=== PATIENT | male | born 1950 ===

== ENCOUNTER 2020-10-16 07:00 | Observation (INO) ==
--- NOTE | 2020-10-11 12:39 | Anesthesiology Consultation ---
Date of Service October 11, 2020 Assessment & Plan (1) Encounter for pre-operative examination: COVID Status: As of 09/25/20 nurse assessment, patient denies travel to endemic area, known exposure/sick contacts, or symptoms of COVID19. [place] [facility] [place]. Cardiology Clearance 09/28/20 = "Do not recommend further invasive or noninvasive cardiovascular testing or procedures. 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 Patient did not disclose h/o DM, nor is he on any medications for it. Note sent to PCP; patient was to be seen for pre-op clearance ordered by surgeon on 08/27. Will await clearance note. Chart Review Chart Review: Acceptable Risk for Surgery (pending receipt of PCP clearance) and health researcher initiated (patient seen in PAT by Mena Ngo 08/22/20, case then R/S) History Surgery Operation Date: 10/16/20 12:15 Proposed Procedures p Right Total Knee Arthroplasty - Daniele Quintanilla DO Height/Weight Height: 5 ft 9 in Weight: 102.965 kg Allergies Allergy/AdvReac Type Severity Reaction Status Date / Time meloxicam AdvReac Unknown TO AVOID Verified 09/25/20 08:41 DUE TO EFFECT ON KIDNEY FUNCTION Medications Home Medications Medication Instructions Recorded Confirmed Last Taken acetaminophen [Tylenol Arthritis] 1,300 mg PO Q12H PRN 08/16/20 09/25/20 Unknown diphenhydramine-acetaminophen 1 tab PO HS PRN 08/16/20 09/25/20 Unknown [Tylenol PM Extra Strength] multivitamin 1 tab PO QAM 08/16/20 09/25/20 Unknown simvastatin 10 mg PO HS 08/16/20 09/25/20 Unknown Past Medical History Medical History Arthritis Cardiac murmur childhood- no murmur noted by Simran Ngo at PAT visit 08/22/20 COVID-19 03/2020- mild symptoms, fever, cough, fatigue (no residual effects) - has completely recovered Elevated hemoglobin A1c was 7.3, went on diet lost 5#, started checking blood sugar and will see dr Gonzalez(PCP) in [facility]) 09/26/2020 Hyperlipidemia Sleep apnea "Moderate" per home sleep study- never received a device - pt never did follow up study for device Past Surgical History Surgical History History of carpal tunnel release R/L + trigger finger release History of colonoscopy History of esophagogastroduodenoscopy (EGD) Social History Smoking Status: Never smoker Do You Dip or Chew Tobacco: No Hx Alcohol Use: No Hx Substance Use: No substance use type: does not use Testing Laboratory Results 08/22/20 WBC: 8.06 H/H: 14.3/42.7 PLATELETS: 290 SODIUM: 135 POTASSIUM: 4.3 CHLORIDE: 103 CO2: 28 BUN: 30 CREATININE: 1.31 GLUCOSE: 103 PT: 10.9 PTT: 28.8 INR: 1.0 A1C: 7.3% TYPE AND SCREEN: A+, antibody negative Electrocardiogram Date: 09/13/20 Findings: + NSR @ (71bpm) IVCD. Anteroseptal VT, possibly acute. Q-wave in V1-V4. (performed at cardio appointment, subsequent stress testing performed) Chest X-Ray Date: 08/22/20 Findings: + NAD Echocardiogram Date: 09/13/20 EF: 55% Normal LV cavity size, wall thickness and systolic function. No RWMA. Normal RV size and function. Mild calcification of mitral valve with trivial regurgitation. Stress Test Date: 09/13/20 Type: nuclear Findings: no ischemia Resting EF: 74% Stress EKG uninterpretable for ischemia on account of the baseline LBBB. Fixed small basal inferior wall perfusion defect c/w diaphragmatic attenuation.
--- NOTE | 2020-10-14 10:16 | History & Physical Report ---
Date of Service October 16, 2020 Assessment & Plan (1) Degenerative joint disease of knee, right: I have indicated the patient for right total knee replacement. The risks, benefits and complications of surgery were explained to the patient which include but not limited to infection, acute blood loss, DVT/PE, injury to nerves, vessels, bone, soft tissue, arthrofibrosis, chronic pain, failure of the prosthesis, knee dislocation, leg length discrepancy, need for additional surgery, cardiac and pulmonary events and . The patient wished to proceed with surgery and informed consent was obtained at this time. We will plan for 81mg ASA BID post-operatively for DVT prophylaxis. Upon discharge the patient will be discharged home with home health services. Appropriate clearances by PCP were obtained. History of Present Illness Chief Complaint: Right knee pain/DJD Primary Care Provider: Grant Gonzalez MD The patient is a 70 year old male who presents with complaints of severe right knee pain and DJD. The patient has failed outpatient conservative treatments to this point which included NSAIDs, IA corticosteroid and VERMA injections, PT and a home exercise/walking program. The patient's pain and limited function have progressed to the point where they severely hinder their activities of daily living and they no longer tolerate exercise programs. They are requesting to proceed with total knee replacement surgery. Allergies Allergy/AdvReac Type Severity Reaction Status Date / Time meloxicam AdvReac Unknown TO AVOID Verified 10/16/20 07:34 DUE TO EFFECT ON KIDNEY FUNCTION Home Medications Medication Instructions Recorded Confirmed Type acetaminophen [Tylenol Arthritis] 1,300 mg PO Q12H PRN 08/16/20 09/25/20 History diphenhydramine-acetaminophen 1 tab PO HS PRN 08/16/20 09/25/20 History [Tylenol PM Extra Strength] multivitamin 1 tab PO QAM 08/16/20 09/25/20 History simvastatin 10 mg PO HS 08/16/20 09/25/20 History metformin 500 mg PO QAM 10/11/20 10/11/20 History Past Med/Surg History Medical History Arthritis Cardiac murmur childhood- no murmur noted by Simran Ngo at PAT visit 08/22/20 COVID-19 03/2020- mild symptoms, fever, cough, fatigue (no residual effects) - has completely recovered Diabetes mellitus Type II Hyperlipidemia Sleep apnea "Moderate" per home sleep study- never received a device - pt never did follow up study for device Surgical History History of carpal tunnel release R/L + trigger finger release History of colonoscopy History of esophagogastroduodenoscopy (EGD) Social History Smoking Status: Never smoker Second Hand Exposure: No; Do You Dip or Chew Tobacco: No; Tobacco Cessation Education Requested by Patient: No Hx Alcohol Use: No Hx Substance Use: No Preferred Language: Macedonian Communication Ability: Effective Nursery Hand Required: No Beliefs That Will Affect Care: None Current Living Situation: Spouse Other Information That Helps Us Care for You: No Feels Safe at Home: Yes Safety Concerns: Feels Safe At This Time Assistive Devices: Glasses Review of Systems Review of Systems: All systems reviewed & are unremarkable except as noted in HPI & below Constitutional: as per Subjective / HPI Physical Exam Physical Exam: RLE NVSI +EHL/FHL/TA/GS SILT grossly, +2 DP pulse, compartments soft NT, limited painful ROM of the knee, 0-115 degrees of flexion, +crepitus. Constitutional: WD/WN, vitals as above Eyes: PERRL, conjunctivae normal, anicteric sclerae ENMT: external ear and nose normal, oropharynx normal Neck: trachea midline, no thyromegaly Respiratory: normal respiratory effort, lungs clear to auscultation Cardiovascular: RRR, no murmur, no edema Gastrointestinal (Abdomen): normal bowel sounds, soft, nontender, no hepatosplenomegaly Musculoskeletal: no cyanosis or clubbing, extremities motor strength 5/5 Skin: no rashes, warm and dry Neurologic: patellar DTR's 2+ bilat, sensation intact Psychiatric: A+Ox3, euthymic affect Lymphatic: no cervical or axillary lymphadenopathy Results & Data Results & Data ([facility]) Diagnostic Findings Multiple views of the knee demonstrates severe tricompartmental DJD with complete loss of the lateral, PF joint space. +osteophytes, +sclerosis, +subchondral cysts.
[~2020-10-16 07:00] MED LIST: ACETAMINOPHEN 500 MG TAB PO SCH; BUPIVACAINE 0.25% 30 ML VIAL ONE; BUPIVACAINE 0.5 % 5 MG/1 ML PF 10ML VIAL ONE; CeleBREX 200 MG CAP PO SCH; FAMOTIDINE 20 MG TAB PO SCH; LR 500ML BOLUS, THEN 15ML/HR IV SCH; METOCLOPRAMIDE HCL 10 MG TABLET PO SCH; ROPIVACAINE 0.5% HCL/PF 150 MG, BUPIVACAINE 0.75% MPF 20 ML, EPINEPHrine 30MG/30ML (OR ... INFIL SCH; TRANEXAMIC ACID 1,000 MG **IV Intra-op IV SCH; TRANEXAMIC ACID 1,000 MG **IV Pre-op IV SCH; ceFAZolin 2000MG 2,000 MG/15 ML SYR IV SCH; dexAMETHasone 4 MG TAB PO SCH
[2020-10-16] MEDS ORDERED: fentaNYL citrate 100 MCG/2 ML VIAL IV PRN (09:00)
[2020-10-16] MEDS ORDERED: ATROPINE SULFATE 0.1 MG/ML 10ML SYR IV PRN (09:00)
[2020-10-16] MEDS ORDERED: ePHEDrine sulfate 50 MG/ML AMP IV PRN (09:00)
[2020-10-16] MEDS ORDERED: ONDANSETRON INJ 2 MG/ML 2 ML VIAL IV PRN ×2 (09:00→12:34)
[2020-10-16] MEDS ORDERED: MIDAZOLAM HCL 1 MG/ML 2ML VIAL ONE ×4 (09:15→13:47)
--- NOTE | 2020-10-16 09:18 | History & Physical Bridge Note ---
Date of Service October 16, 2020 History & Physical Bridge Note I have examined the patient, reviewed the History & Physical and in the interval since the performance of the History & Physical I have noted the following changes of clinical significance: no changes noted
[2020-10-16] MEDS ORDERED: ORTHO JOINT ANESTHETIC ONE (09:36)
[2020-10-16] MEDS ORDERED: BACITRACIN INJ 50,000 UNIT VIAL ONE (09:37)
--- NOTE | 2020-10-16 11:22 | Post Operative Brief Note ---
Immediate Post Op Note v1 Date of Surgery October 16, 2020 Pre & Post Diagnosis Operation Date: 10/16/20 09:35 Pre-Op Diagnosis: Unilateral Primary Osteoarthritis Knee Right Post-Op Diagnosis: Unilateral Primary Osteoarthritis Knee Right I identified the patient and participated in the time-out.: Yes Procedure Operation Date: 10/16/20 09:35 Actual Procedures p Right Total Knee Arthroplasty(Right) - Daniele Quintanilla DO Surgeon Daniele Quintanilla DO Tobacco Packer Brady Stoner Estimated Blood Loss 85 Findings Consistent with Post-Op Diagnosis Fluids See anesthesia report Specimens Proximal tibia and distal femur bone fragments Anesthesia Type Spinal MAC Complications none Disposition Disposition: Recovery Room Overlapping Procedure I was present for: the critical portions of procedure. I was immediately available: during the entire case. Back up surgeon: was not required during procedure.
--- NOTE | 2020-10-16 11:25 | Operative Report ---
Post Operative Report Pre & Post Diagnosis Operation Date: 10/16/20 09:35 Pre-Op Diagnosis: Unilateral Primary Osteoarthritis Knee Right Post-Op Diagnosis: Unilateral Primary Osteoarthritis Knee Right I identified the patient and participated in the time-out.: Yes Procedure Operation Date: 10/16/20 09:35 Actual Procedures p Right Total Knee Arthroplasty(Right) - Daniele Quintanilla DO Surgeon Daniele Quintanilla, Associate Medical Director Brady Stoner Estimated Blood Loss 85 Findings Consistent with Post-Op Diagnosis Fluids See anesthesia report Specimens Proximal tibia and distal femur bone fragments Anesthesia Type Spinal MAC Complications none Disposition Disposition: Recovery Room Indications The patient is a 70-year-old male presents with long history of severe right knee tricompartmental DJD and failed outpatient conservative treatments including NSAIDs, bracing, injections and home walking/exercise program. The patient's symptoms have progressed to the point where it has been difficult to perform normal activities of daily living. I have indicated the patient for a right total knee arthroplasty, the risks and benefits and complications of the procedure include but are not limited to infection bleeding damage to bone, nerves, vessels, surrounding soft tissue, blood clots, loss of function, leg length discrepancy, dislocation, failure of the components, need for additional surgery and . The patient wished to proceed with surgery at this time and informed consent was obtained. Appropriate clearances were obtained. Description of Procedure The patient was taken to the operating room and appropriate spinal anesthesia was administered. The patient was placed supine on the operating room table. A foot roll was placed so we could flex the knee during the procedure as needed. A pneumatic tourniquet was placed on the proximal aspect of the thigh. The right lower extremity was prepped and draped in usual sterile fashion. A timeout was performed, patient and site jordan verified and IV antibiotics given. The leg was elevated, exsanguinated with Esmarch bandage. Pneumatic tourniquet was raised to 300 mmHg. A longitudinal midline incision was made over the anterior knee. Skin was incised sharply and subcutaneous flaps were elevated. Incision was made through the medial retinaculum extended up in the mid third of the quadriceps tendon and extended down to the medial tibial tubercle. The Bazzi [employer] Nephew Journey 2.0 total knee arthroplasty system was used using CipherHealthe MRI templating and femur sized for a 6, tibial sized for a 6. To expose the knee the infrapatellar fat pad was resected. The lateral synovial bands were released. The cruciate ligaments were resected. The meniscal remnants were resected. The fat pad over the anterior femur just above the articular surface for placement of the component in that area was resected. The knee was flexed and retractors were placed and the custom femoral cutting block was pinned in position and the distal femoral cut was made. Next, the size 6, 5-in-1 cutting block was pinned into place and the anterior, posterior and chamfer cuts were made. The 5-in-1 cutting block was removed. Next, attention was taken back to the tibia which was subluxed anteriorly and the custom tibial cutting block was pinned in position and the proximal tibial cut was made. The tibia guide was removed and proximal tibial bone fragment removed utilizing straight osteotome, electrocautery and bertha. Laminar online advertising manager was placed laterally and the ACL and PCL were removed followed by the medial meniscus and posterior medial osteophytes. Aquamantys was utilized for any posterior medial bleeders and Orthomix injected into the posterior medial capsule. A laminar online advertising manager was then placed in the medial compartment and the lateral meniscus and posterior osteophytes were removed. Aquamantys was utilized for any posterior lateral bleeders and Orthomix injected into the posterior lateral capsule. Next, ligamentous balance was assessed in extension and flexion utilizing spacer block and drop pato. At this time, the tibia was then resubluxed and the 6 tibial trial was placed in position with appropriate external rotation in relationship to the tibial tubercle. The tibial drill and punch for the stem was used. Next the 6 femoral trial was inserted, centered and the notch cutting devices were used to finish prepping the femur. A trial 10 mm tibial articulating surface was inserted assessed ligamentous balance, the tibial size was increased sequentially testing for knee balance in full ROM, varus/valgus. The 12 mm BCS trial insert gave balanced ligaments through full range of motion. At this time the knee was extended and a subperiosteal peel lateral release was performed around the patella. Patella width was measured and the patella was prepped utilizing free hand technique and the 3 drill holes were made for the pegs. The excess lateral facet was beveled off to prevent any impingement. A 35 mm oval patella button was placed and the patella tracked centrally. The trials were removed and the knee was copiously irrigated with pulsatile lavage antibiotic solution with bacitracin. The final components were then cemented into place and trial tibial articulating surface inserted. Final components were the size 6 Oxinium posterior stabilized Bazzi [employer] Nephew Journey 2.0 left femoral component, size 6 primary tibial baseplate and 35 mm patella. Once the cement cured, we trialed once more with the 12 mm tibial articulating surface and found the knee to be stable throughout full ROM. The trial component was removed and the final 12 mm tibial articular surface was inserted. Kanchan-incisional soft tissue was injected utilizing [place] Orthomix which includes a combination of Ropivicaine 0.5% 150mg, Bupivicaine 0.5%/Epinephrine 1:200,000 30ml, Toradol 30mg, Dexamethasone 4mg, Ketamine 10mg, Clonidine 100mcg and NSS 30ml solution. A Betadine soak was performed. After 3 minutes, the knee was once more irrigated with copious sterile saline solution with bacitracin. The medial retinaculum were closed with interrupted [id number] #1 Vicryl sutures. The knee was taken through full range of motion and repair was secure. Subcutaneous tissues were closed with interrupted 2-0 Vicryl sutures followed by 3-0 V lock and then the skin was closed with Prineo Dermabond skin closure system. The sterile dressings were applied which included Telfa, 4 x 4's and an Mingo wrap from the foot to thigh. Tourniquet was let down at 92 minutes and the patient had good capillary refill to the extremity. The patient tolerated the procedure well and was taken to the PACU in stable condition. Due to the complex nature of the procedure, the entire surgery was performed with the operational assistance of Brady Stoner PA-C. The medical record assistant, under direct supervision, was involved in the actual performance of all aspects of the surgical procedure including patient positioning, hemostasis, tissue retraction, instrument management and wound closure. I attest to the content of the Intraoperative Record and any orders documented therein. Any exceptions are noted below.
[2020-10-16] MEDS ORDERED: PROPOFOL IV EMULSION 10 MG/ML 20 ML VIAL IV ONE (11:57)
[2020-10-16] MEDS ORDERED: LIDOCAINE HCL 2% 2 ML VIAL/AMP(20MG/ML) INFIL ONE (11:57)
--- NOTE | 2020-10-16 12:18 | XRay Report ---
RIGHT KNEE 2 VIEWS History: Right total knee arthroplasty. Degenerative arthritis. Postop. FINDINGS: The patient is status post a right total knee arthroplasty. The hardware is intact. No frac ture or dislocation. IMPRESSION: Right total knee arthroplasty. No evidence for hardware complication. ACT 112: Negative or not required by law. Electronically signed by: Jack Garcia M.D. 10/16/2020 12:16 PM
[2020-10-16] MEDS ORDERED: MAGNESIUM HYDROXIDE SUSP 30 ML UDC PO PRN (12:34)
[2020-10-16] MEDS ORDERED: bisacodyL 10 MG SUPP PR PRN (12:34)
[2020-10-16] MEDS ORDERED: diphenhydrAMINE Capsule 25 MG CAP PO PRN (12:34)
[2020-10-16] MEDS ORDERED: METOCLOPRAMIDE HCL INJ 5 MG/ML 2 ML VIAL IV PRN (12:34)
[2020-10-16] MEDS ORDERED: ceFAZolin 2000MG 2,000 MG/15 ML SYR IV SCH (12:34)
[2020-10-16] MEDS ORDERED: oxyCODONE HCL IR 5 MG TAB (IMMEDIATE RELEASE) PO PRN (12:34)
[2020-10-16] MEDS ORDERED: HYDROmorphone INJ 0.5 MG/0.5 ML SYR IV PRN (12:34)
[2020-10-16] MEDS ORDERED: NALOXONE HCL 0.4 MG/1 ML VIAL/CARP IV PRN (12:34)
--- NOTE | 2020-10-16 13:28 | Anesthesiology Progress Note ---
Date of Service October 16, 2020 Anesthesia Post Procedure Vital Signs Vital Signs: Temp Pulse Pulse Resp BP BP Pulse Ox 10/16/20 13:00 65 18 128/68 96 10/16/20 12:20 36.5 C 74 15 113/61 97 10/16/20 12:10 75 15 114/65 99 10/16/20 12:00 83 16 112/60 99 10/16/20 11:51 36.6 C 87 22 120/62 97 10/16/20 07:35 36.8 C 66 20 136/80 96 Transfer of Care Handoff Completed per policy Notes Mental Status: alert / awake / arousable and participated in evaluation Patient Amnestic to Procedure: Yes Nausea / Vomiting: adequately controlled Pain: adequately controlled Airway Patency, RR, SpO2: stable & adequate BP & HR: stable & adequate Hydration State: stable & adequate Neuraxial Anesthesia: was administered and sensory block is resolving Anesthetic Complications: no major complications apparent and Pt Satisfied with anesthetic care
[2020-10-16] MEDS: SODIUM CHLORIDE 0.9% 1000ML 1,000 ML IV SCH ×2 (13:34→22:46)
[2020-10-16] MEDS: ACETAMINOPHEN 500 MG TAB PO SCH ×2 (14:02→20:55)
[2020-10-16] MEDS ORDERED: PHENYLEPHRINE 100MCG/ML 5ML SYR ONE (15:00)
--- NOTE | 2020-10-16 15:58 | Orthopedic Progress Note ---
Date of Service October 16, 2020 Assessment & Plan (1) Degenerative joint disease of knee, right: s/p R TKA -ancef x 24 -DVT ppx: SCDs, TEDs, 81mg ASA BID -WBAT RLE -PT/OT -Postoperative x-ray demonstrates a well aligned well fixed prosthesis without fracture or dislocation -am labs -DC planning Admission and Anticipated Discharge Date Admission Date: October 16, 2020 Subjective Post Operative Progress Note Patient seen sitting up in bed, comfortable, denies complaints, pain well controlled, no acute issues. Review of Systems Review of Systems: All systems reviewed & are unremarkable except as noted in HPI & below Constitutional: as per Subjective / HPI Physical Exam Physical Exam: RLE NVSI +EHL/FHL/TA/GS SILT grossly, +2 DP pulse, compartments soft NT, dressing cdi. Constitutional: WD/WN, vitals as above Results & Data ([facility]) Vital Signs (Past 12 Hours) Vital Signs Temp Pulse Pulse Resp BP BP Pulse Ox 10/16/20 15:30 36.5 C 67 18 101/57 L 94 10/16/20 14:30 36.6 C 74 18 110/65 96 10/16/20 13:30 73 18 105/50 L 98 10/16/20 13:00 65 18 128/68 96 10/16/20 12:20 36.5 C 74 15 113/61 97 10/16/20 12:10 75 15 114/65 99 10/16/20 12:00 83 16 112/60 99 10/16/20 11:51 36.6 C 87 22 120/62 97 10/16/20 07:35 36.8 C 66 20 136/80 96
[2020-10-16] MEDS ORDERED: PHARMACY GLYCEMIC MGMT CONSULT PRN (16:05)
[2020-10-16] MEDS ORDERED: GLUCAGON FOR INJ 1 MG VIAL IM PRN (16:15)
[2020-10-16] MEDS ORDERED: CARBOHYDRATES FOR HYPOGLYCEMIA PO PRN (16:15)
[2020-10-16] MEDS ORDERED: GLUCOSE 10 TABS/TUBE PO PRN (16:15)
[2020-10-16] MEDS ORDERED: DEXTROSE 50% 50 ML SYRINGE IV PRN (16:15)
[2020-10-16] MEDS ORDERED: GLUCOSE 40% GEL 15 GM TUBE PO PRN (16:15)
[2020-10-16] MEDS ORDERED: NovoLIN-N (NPH) PER UNIT CHARGE SQ SCH (16:30)
[2020-10-16] MEDS ORDERED: INSULIN ASPART 100 UNITS/ML 3 ML PEN SC SCH (16:30)
[2020-10-16] MEDS: INSULIN ASPART 100 UNITS/ML 3 ML PEN SC SCH ×2 (17:56→20:56)
[2020-10-16] MEDS: ceFAZolin 3,000 MG in DEXTROSE 5% 50 ML IV SCH (18:27)
[2020-10-16] MEDS: DOCUSATE SODIUM 100 MG CAP PO SCH (20:56)
[2020-10-16] MEDS ORDERED: SENNA 8.6 MG TAB PO SCH (21:00)
[2020-10-16] MEDS ORDERED: SIMVASTATIN 10 MG TAB PO SCH (21:00)
[2020-10-17] MEDS ORDERED: INSULIN ASPART 100 UNITS/ML 3 ML PEN SC SCH (02:00)
[2020-10-17] MEDS: ceFAZolin 3,000 MG in DEXTROSE 5% 50 ML IV SCH (02:40)
[2020-10-17] MEDS: ACETAMINOPHEN 500 MG TAB PO SCH ×2 (05:37→13:58)
[2020-10-17 06:46] LABS: Hematocrit (blood only) 32.9 % (42-52); Hemoglobin 11.4 g/dL (14.0-18.0); Mean Corpuscular Hemoglobin 30.7 pg (25-34); Mean Corpuscular Hgb Conc 34.7 g/dL (32-36); Mean Corpuscular Volume 88.7 fL (80-100); Mean Platelet Volume 9.4 fL (7.4-10.4); Platelet Count 253 K/uL (130-400); RDW Coefficient of Variation 13.8 % (11.5-14.5); RDW Standard Deviation 45.1 fL (36.4-46.3); Red Blood Count 3.71 M/uL (4.7-6.1); White Blood Count 14.35 K/uL (4.8-10.8)
[2020-10-17 07:15] LABS: BUN Creatinine Ratio 20.7 (10-20); Calcium 7.9 mg/dl (8.5-10.1); Creatinine Clr Calc Pharmacy 59.5 ml/min; Est GFR (African American) 60.7; Est GFR (Non-African American) 52.3; Potassium 4.6 mmol/L (3.5-5.1)
--- NOTE | 2020-10-17 07:58 | Anesthesiology Progress Note ---
Date of Service October 17, 2020 Anesthesia Post Procedure Vital Signs Vital Signs: Temp Pulse Pulse Resp BP BP Pulse Ox 10/17/20 07:52 36.7 C 69 18 116/68 97 10/17/20 02:47 36.5 C 65 18 106/58 L 94 10/16/20 22:03 36.7 C 63 14 139/65 97 10/16/20 19:55 36.5 C 66 14 106/56 L 96 10/16/20 15:30 36.5 C 67 18 101/57 L 94 10/16/20 14:30 36.6 C 74 18 110/65 96 10/16/20 13:30 73 18 105/50 L 98 10/16/20 13:00 65 18 128/68 96 10/16/20 12:20 36.5 C 74 15 113/61 97 10/16/20 12:10 75 15 114/65 99 10/16/20 12:00 83 16 112/60 99 10/16/20 11:51 36.6 C 87 22 120/62 97 Pain Intensity Right Knee: Pain Intensity: 3 Notes Mental Status: alert / awake / arousable and participated in evaluation Patient Amnestic to Procedure: Yes Nausea / Vomiting: adequately controlled Pain: adequately controlled Airway Patency, RR, SpO2: stable & adequate BP & HR: stable & adequate Hydration State: stable & adequate Neuraxial Anesthesia: was administered and sensory block resolved Anesthetic Complications: no major complications apparent
[2020-10-17] MEDS: DOCUSATE SODIUM 100 MG CAP PO SCH (08:17)
[2020-10-17] MEDS: INSULIN ASPART 100 UNITS/ML 3 ML PEN SC SCH ×2 (08:45→12:55)
[2020-10-17] MEDS ORDERED: INSULIN GLARGINE SOLOSTAR 100 UNITS/ML 3 ML PEN SC SCH (09:00)
[2020-10-17] MEDS ORDERED: MULTIVITAMIN TAB PO SCH (09:00)
[2020-10-17] MEDS ORDERED: ASPIRIN 81 MG ECTAB PO SCH (09:00)
--- NOTE | 2020-10-17 10:28 | Orthopedic Progress Note ---
Date of Service October 17, 2020 Assessment & Plan (1) Degenerative joint disease of knee, right: s/p R TKA POD#1 -ancef x 24 -DVT ppx: SCDs, TEDs, 81mg ASA BID -WBAT RLE -PT/OT -Postoperative x-ray demonstrates a well aligned well fixed prosthesis without fracture or dislocation -am labs - as above, hgb 11.4 -DC planning - home with Admission and Anticipated Discharge Date Admission Date: October 16, 2020 Subjective Post Operative Progress Note Patient seen sitting up in bed, comfortable, denies complaints, pain well controlled, no acute issues. Denies F/C/N/V/SOB/CP. Review of Systems Review of Systems: All systems reviewed & are unremarkable except as noted in HPI & below Constitutional: as per Subjective / HPI Physical Exam Physical Exam: RLE NVSI +EHL/FHL/TA/GS SILT grossly, +2 DP pulse, compartments soft NT, dressing cdi. Constitutional: WD/WN, vitals as above Results & Data ([facility]) Vital Signs (Past 12 Hours) Vital Signs Temp Pulse Resp BP Pulse Ox 10/17/20 07:52 36.7 C 69 18 116/68 97 10/17/20 02:47 36.5 C 65 18 106/58 L 94 Diagnostic Findings 10/17/20 10/17/20 10/17/20 Range/Units 07:56 06:33 06:33 WBC 14.35 H (4.8-10.8) K/uL RBC 3.71 L (4.7-6.1) M/uL Hgb 11.4 L (14.0-18.0) g/dL Hct 32.9 L (42-52) % MCV 88.7 (80-100) fL MCH 30.7 (25-34) pg MCHC 34.7 (32-36) g/dL RDW Std Deviation 45.1 (36.4-46.3) fL RDW Coeff of William 13.8 (11.5-14.5) % Plt Count 253 (130-400) K/uL MPV 9.4 (7.4-10.4) fL Sodium 138 (136-145) mmol/L Potassium 4.6 (3.5-5.1) mmol/L Chloride 109 H (98-107) mmol/L Carbon Dioxide 22 (21-32) mmol/L Anion Gap 7.0 (3-11) BUN 28 H (7-18) mg/dl Creatinine 1.36 (0.6-1.4) mg/dl Est Cr Clr Drug Dosing 59.5 ml/min Est GFR ( Amer) 60.7 Est GFR (Non-Af Amer) 52.3 BUN/Creatinine Ratio 20.7 H (10-20) Glucose 129 H (70-99) mg/dl POC Glucose 144 H (70-99) mg/dl Calcium 7.9 L (8.5-10.1) mg/dl 10/17/20 10/16/20 10/16/20 Range/Units 02:33 20:44 17:00 WBC (4.8-10.8) K/uL RBC (4.7-6.1) M/uL Hgb (14.0-18.0) g/dL Hct (42-52) % MCV (80-100) fL MCH (25-34) pg MCHC (32-36) g/dL RDW Std Deviation (36.4-46.3) fL RDW Coeff of William (11.5-14.5) % Plt Count (130-400) K/uL MPV (7.4-10.4) fL Sodium (136-145) mmol/L Potassium (3.5-5.1) mmol/L Chloride (98-107) mmol/L Carbon Dioxide (21-32) mmol/L Anion Gap (3-11) BUN (7-18) mg/dl Creatinine (0.6-1.4) mg/dl Est Cr Clr Drug Dosing ml/min Est GFR ( Amer) Est GFR (Non-Af Amer) BUN/Creatinine Ratio (10-20) Glucose (70-99) mg/dl POC Glucose 99 169 H 260 H (70-99) mg/dl Calcium (8.5-10.1) mg/dl 10/16/20 10/16/20 10/16/20 Range/Units 12:59 11:54 07:30 WBC (4.8-10.8) K/uL RBC (4.7-6.1) M/uL Hgb (14.0-18.0) g/dL Hct (42-52) % MCV (80-100) fL MCH (25-34) pg MCHC (32-36) g/dL RDW Std Deviation (36.4-46.3) fL RDW Coeff of William (11.5-14.5) % Plt Count (130-400) K/uL MPV (7.4-10.4) fL Sodium (136-145) mmol/L Potassium (3.5-5.1) mmol/L Chloride (98-107) mmol/L Carbon Dioxide (21-32) mmol/L Anion Gap (3-11) BUN (7-18) mg/dl Creatinine (0.6-1.4) mg/dl Est Cr Clr Drug Dosing ml/min Est GFR ( Amer) Est GFR (Non-Af Amer) BUN/Creatinine Ratio (10-20) Glucose (70-99) mg/dl POC Glucose 168 H 135 H 149 H (70-99) mg/dl Calcium (8.5-10.1) mg/dl
[2020-10-17] MEDS ORDERED: metFORMIN HCL 500 MG TAB PO SCH (16:30)
--- NOTE | 2020-10-18 20:24 | Discharge Summary ---
Date of Service October 18, 2020 Admission HPI Per Admitting Provider The patient is a 70 year old male who presents with complaints of severe right knee pain and DJD. The patient has failed outpatient conservative treatments to this point which included NSAIDs, IA corticosteroid and VERMA injections, PT and a home exercise/walking program. The patient's pain and limited function have progressed to the point where they severely hinder their activities of daily living and they no longer tolerate exercise programs. They are requesting to proceed with total knee replacement surgery. Principal Diagnosis Right total knee replacement -Right knee DJD Discharge Exam RLE NVSI +EHL/FHL/TA/GS SILT grossly, +2 DP pulse, compartments soft NT, dressing cdi. Constitutional WD/WN, vitals as above Discharge Data Allergies Allergy/AdvReac Type Severity Reaction Status Date / Time meloxicam AdvReac Unknown TO AVOID Verified 10/16/20 07:34 DUE TO EFFECT ON KIDNEY FUNCTION Consultations 10/16/20 12:34 Consult Case Management - Discharge Planning Routine Procedures Performed Operation Date: 10/16/20 09:35 Actual Procedures p Right Total Knee Arthroplasty(Right) - Daniele Quintanilla DO Ordered Studies 10/16/20 05:00 US - OR guided needle placemen Routine Hospital Course (1) Degenerative joint disease of knee, right: The patient is a 70 -year-old male who presents with long standing history of severe right knee DJD and failed outpatient conservative treatments. The patient's symptoms have progressed to the point where it has been difficult to perform even normal activities of daily living. I indicated the patient for a right total knee arthroplasty, the risks, benefits and complications of the procedure include but not limited to infection, blee ding, damage to bone, nerves, vessels, surrounding soft tissue, may develop blood clots, loss of function, leg length discrepancy, dislocation, failure of the components, loosening of the components, the need for additional surgery and . The patient wished to proceed with surgery at this time and informed consent was obtained. Hospital Course: On 10/16/20 the patient was taken to the operating room, adequate anesthesia administered and underwent a right total knee arthroplasty. The patient tolerated the procedure well and was taken to the PACU in stable condition. Post-operatively the patient was started on a DVT ppx medication and given appropriate IV antibiotics. Consults were placed to physical therapy, occupational therapy and case management. On POD#1, the patient did well overnight and their pain was well controlled. Labs were drawn and the Hgb was 11.4. The patient progressed well with PT. Dressings were changed at this time and the incision was clean, dry and intact. The patients hospital stay was relatively uneventful and they were deemed stable by the orthopedic team and consultants to be discharged home with HH on 10/17/20. Discharge Instructions: Upon discharge the patient may weight bear as tolerates through their operative extremity. They were instructed to keep the incision clean and dry at all times. The patient may shower but should not submerge the incision, avoid bathing, pools and hot tubs. The patient was given a script for pain medication and should take as instructed. The patient was given a script for DVT ppx 81mg ASA BID and should take as directed. The patient was instructed to not drive or travel for long distances until cleared to do so. If the patient develops any symptoms of fevers, chills, nausea, vomiting, increased redness, swelling, pain or drainage from the surgical site, they should notify the office and/or proceed to the nearest emergency room. The patient should follow up in 10-14 days after surgery for their routine post-operative follow-up appointment and should call the office, to confirm the date and time. s/p R TKA POD#1 -ancef x 24 -DVT ppx: SCDs, TEDs, 81mg ASA BID -WBAT RLE -PT/OT -Postoperative x-ray demonstrates a well aligned well fixed prosthesis without fracture or dislocation -am labs - as above, hgb 11.4 -DC planning - home with Total Time Total Time Spent Total Time Spent (In Minutes): 30 Discharge Plan Discharge Items Patient Disposition: Home - Home Health Services Reason For Visit: Unilateral Primary Osteoarthritis Knee Right Discharge Diagnosis: Right total knee replacement Condition on Discharge: Good Activity: Per Instructions section Lifting: Wait until after follow-up appointment Bathing: Keep incision dry Bathing Comment: No bathing, pools or hot tubs. Sexual Activity: Wait until after follow-up appointment Exercise/Sports: Wait until after follow-up appointment Driving/Machine Use: No driving. Weightbearing: Full weightbearing Non-emergency contact: Primary Care Provider and Surgeon Call non-emergency contact if: you have any medication questions, your symptoms worsen, your pain is not controlled, your pain is worsening, your pain is unusual for you, your pain is concerning for you, you have a fever, your temperature is above 101, your wound has increased redness, your wound has increased drainage and your wound pain has increased Follow-up/Referrals: Grant Gonzalez MD [Primary Care Provider] - Diet: Carb Consistent or DM2 Addtl Attending Provider Instructions: ACTIVITY RECOMMENDATIONS: SELF CARE INSTRUCTIONS AFTER TOTAL KNEE REPLACEMENT A. You may need to continue a physical therapy program after discharge from the hospital. There are several options available to you. Your doctor will assist you in selecting the best one for you. 1. An out-patient facility 2 to 3 times a week for therapy or home therapy. 2. Continue working on all exercises taught to you in the hospital. Your goals should be to increase bending of your knee to 90 degrees and beyond and to fully straighten your knee. B. You may progress at your own pace from walking with a walker or crutches to a cane; then to no assistive devices. C. Make walking a part of your daily routine. Be up as much as comfortable with rest periods throughout the day. Rest with leg elevation is very important. Use the ice wrap frequently for the first 3-4 weeks. D. There are no restrictions on activities. You may ride in a car, shop, participate in engine turner and all social activities. E. Wear the long elastic stockings (NA hose) 20 hours a day for 2 weeks after surgery. They can be removed several times a day for laundering and for a bath. F. You may shower, no tub baths until cleared by your doctor. SPECIAL CARE INSTRUCTIONS: VERY IMPORTANT TO READ AND REVIEW A. There are a few signs you need to watch for after you are home. Call [facility] if you notice any of the followin. Increased severe knee pain. Some pain is expected especially when you exercise. 2. Increased swelling in your leg or knee; pain or swelling of the calf muscle in either lower leg. 3. Any fluid drainage from the incision. 4. Shortness of breath or chest pain. B. Please call [facility] at if you have any concerns or questions about your operation or recovery. The doctor or his nurse will return your call promptly. C. You must take antibiotics before dental work, bladder, bowel or other surgery. Your doctor will provide you with a permanent care to carry describing this precaution. IMPORTANT: * REMEMBER TO TAKE ASPIRIN, 81 MG, TWICE DAILY FOR 4 WEEKS UNLESS OTHERWISE DIRECTED. THIS IS YOUR BLOOD THINNER. * HIGH RISK PATIENTS MAY BE PRESCRIBED A STRONGER BLOOD THINNER. THIS WILL BE PROVIDED AT DISCHARGE. * CALL IF INCREASED PAIN, REDNESS, DRAINAGE OR FEVER GREATER THAT 101. * WEAR NA HOSE 20 HOURS PER DAY FOR 2 WEEKS. *DERMABOND Prineo- This is a mesh tape dressing that is covered with glue. It should remain in place until the incision is properly healed, usually 10-14 days. This dressing is designed to naturally slough off. You may trim the excess mesh tape as it peels off. Incision may be briefly wet in a shower. Dry immediately by blotting with a clean, dry towel. Do not bath or swim until instructed by your doctor. Do not scratch, rub, or pick at the dressing. Do not apply any topical ointments or lotions until dressing is completely removed and/or instructed by your doctor. There may be a small piece of suture material at one end of your incision. Do not pull or trim this. If it is bothersome or catching on clothing, you may cover it with a band-aid. FOLLOW UP VISIT: If appointment is not already scheduled: Please call [facility] to make a follow-up appointment for 2 weeks after your surgery at . Pending Studies at Discharge: No Stand-Alone Forms: My [facility], Opioid Pain Management, Smoking Cessation Medications and DC Order Prescriptions: New acetaminophen 500 mg Tablet 1,000 mg PO Q8 PRN (Reason: fever or pain) Qty: 90 RF: 0 aspirin 81 mg Tablet,Delayed Release (Dr/Ec) 81 mg PO BID Qty: 56 RF: 0 oxycodone 5 mg Tablet 5 mg PO Q6H MDD 4 PRN (Reason: pain) Qty: 30 RF: 0 sennosides [Senokot] 8.6 mg Tablet 17.2 mg PO HS PRN (Reason: constipation) Qty: 28 RF: 0 Continued simvastatin 10 mg Tablet 10 mg PO HS RF: 0 multivitamin Tablet 1 tab PO QAM RF: 0 metformin 500 mg Tablet 500 mg PO QAM RF: 0 Discontinued acetaminophen [Tylenol Arthritis] 650 mg Tablet Extended Release 1,300 mg PO Q12H PRN (Reason: Pain) RF: 0 diphenhydramine-acetaminophen [Tylenol PM Extra Strength] 25-500 mg Tablet 1 tab PO HS PRN (Reason: Pain) RF: 0 Discharge Orders: Discharge Order (Routine); Ordered 10/17/20 Ordered By: Daniele Castellon/Other Patient Handouts: DVT Post Op Prevention Admission Data Admit Date/Time: 10/16/20 11:49 Attending Provider: Daniele Quintanilla Admit Provider: Daniele Quintanilla Primary Care Provider: Grant Gonzalez Other Interventions: Discharge Summary Assessment (RN) Last Done: 10/17/20 13:23
== END 2020-10-17 14:40 | disposition home health service (06) ==
LOC: ASU 07:00 → 3E 07:00